=== PATIENT | male | born 1990 | race Caucasian/White ===

== ENCOUNTER 2017-09-17 00:20 | Emergency (ER) | payer OTHER ==
[~2017-09-17] VITALS: Ht 177.8 cm; Wt 64.2 kg
[~2017-09-17 00:20] MED LIST: PHEN-426 PO; SULF-154 PO
[2017-09-17 00:22] VITALS: BP 139/82; PULSE 113; RESP 22; TEMP 102.8; O2SAT 96
[2017-09-17 00:41] VITALS: BP 139/82; PULSE 113; RESP 18; TEMP 102.8; O2SAT 97
--- NOTE | 2017-09-17 00:50 | PD ---
HPI Chief Complaint: Cold / Flu Symptoms Time Seen by Provider: 00:39 Travel History International Travel<30 days: No Contact w/Intl Traveler<30days: No Traveled to known affect area: No History of Present Illness HPI The patient is a 26-year-old male that has been wheezing, shortness of breath for 1 day. He has a low-grade fever around 101 at home. He was seen yesterday at an urgent care center and the flu test was negative. They did not do a strep screen. They put him on a Z-Regino. [facility] / [facility] Past Medical History Medical History: Denies Significant Hx Diminished Hearing: No Immunizations Current: Yes Tetanus Vaccination: > 5 Years Influenza Vaccination: No Past Surgical History Surgical History: No Previous Surgery Oral Surgery: Yes (WISDOM TEETH) Social History Alcohol Use: Yes (BEER OCCASIONALLY) Tobacco Use: Yes (E=CIG) Substance Use: No Allergies-Medications (Allergen,Severity, Reaction): Coded Allergies: penicillin G (Unverified Allergy, Mild, 09/17/17) Reported Meds & Prescriptions Reported Meds & Active Scripts Active Review of Systems Except as stated in HPI: all other systems reviewed are Neg Physical Exam Narrative GENERAL: The patient is alert, oriented 3 in moderate apparent distress with his sore throat. His vital signs show temperature 102.8 with heart rate of 113 but otherwise are normal. SKIN: Focused skin assessment warm/dry. HEAD: Atraumatic. Normocephalic. EYES: Pupils equal and round. No scleral icterus. No injection or drainage. ENT: No nasal bleeding or discharge. Mucous membranes pink and moist. The tympanic membranes are clear and the throat is bright red without exudate or abscess. NECK: Trachea midline. No JVD. CARDIOVASCULAR: Regular rate and rhythm. No murmur appreciated. RESPIRATORY: No accessory muscle use. Bilateral wheezes are heard in all lung morris. Breath sounds equal bilaterally. GASTROINTESTINAL: Abdomen soft, non-tender, nondistended. Hepatic and splenic margins not palpable. No guarding or rebound is present. MUSCULOSKELETAL: No obvious deformities. No clubbing. No cyanosis. No edema. NEUROLOGICAL: Awake and alert. No obvious cranial nerve deficits. Motor grossly within normal limits. Normal speech. PSYCHIATRIC: Appropriate mood and affect; insight and judgment normal. Data Data Last Documented VS Vital Signs Date Time Temp Pulse Resp B/P (MAP) Pulse Ox O2 Delivery O2 Flow Rate FiO2 09/17/17 00:41 102.8 113 18 139/82 (101) 97 Room Air Orders Orders Complete Blood Count With Diff (09/17/17 00:46) Comprehensive Metabolic Panel (09/17/17 00:46) Group A Rapid Strep Screen (09/17/17 00:46) Influenzae A/B Antigen (09/17/17 00:46) Chest, Pa & Lat (09/17/17 00:46) Methylprednisolone So Succ Inj (Solumedr (09/17/17 01:00) Albuterol-Ipratropium Neb (Duoneb Neb) (09/17/17 01:00) Strep Culture (Group A) (09/17/17 01:02) Ed Discharge Order (09/17/17 01:32) Acetaminophen (Tylenol) (09/17/17 01:45) Labs Laboratory Tests Test 09/17/17 01:02 White Blood Count 5.2 TH/MM3 Red Blood Count 4.85 MIL/MM3 Hemoglobin 15.1 GM/DL Hematocrit 46.0 % Mean Corpuscular Volume 94.9 FL Mean Corpuscular Hemoglobin 31.2 PG Mean Corpuscular Hemoglobin Concent 32.8 % Red Cell Distribution Width 12.3 % Platelet Count 127 TH/MM3 Mean Platelet Volume 8.1 FL Neutrophils (%) (Auto) 81.0 % Lymphocytes (%) (Auto) 12.3 % Monocytes (%) (Auto) 6.3 % Eosinophils (%) (Auto) 0.0 % Basophils (%) (Auto) 0.4 % Neutrophils # (Auto) 4.3 TH/MM3 Lymphocytes # (Auto) 0.6 TH/MM3 Monocytes # (Auto) 0.3 TH/MM3 Eosinophils # (Auto) 0.0 TH/MM3 Basophils # (Auto) 0.0 TH/MM3 CBC Comment DIFF FINAL Differential Comment Blood Urea Nitrogen 10 MG/DL Creatinine 1.20 MG/DL Random Glucose 123 MG/DL Total Protein 7.4 GM/DL Albumin 3.8 GM/DL Calcium Level 8.3 MG/DL Alkaline Phosphatase 41 U/L Aspartate Amino Transf (AST/SGOT) 25 U/L Alanine Aminotransferase (ALT/SGPT) 15 U/L Total Bilirubin 0.7 MG/DL Sodium Level 134 MEQ/L Potassium Level 4.6 MEQ/L Chloride Level 101 MEQ/L Carbon Dioxide Level 25.8 MEQ/L Anion Gap 7 MEQ/L Estimat Glomerular Filtration Rate 72 ML/MIN MDM Medical Decision Making Medical Screen Exam Complete: Yes Emergency Medical Condition: Yes Medical Record Reviewed: Yes Interpretation(s) The strep screen is negative for group A strep antigen. The influenza A/B antigen is positive for influenza A. Differential Diagnosis Strep pharyngitis, viral pharyngitis, flu syndrome, nonspecific viral syndrome, pneumonia, bronchitis, bronchospasm Narrative Course The patient has bronchitis with bronchospasm. He also has a flu syndrome. He got minimal relief with the DuoNeb treatments and his heart rate went up very briefly to the 200 range. He is told that he should warn doctors about being sensitive to albuterol that it made his heart speed up. He will be given 7 days of prednisone 50 mg daily. He needs to follow-up with a primary care physician next week. The prednisone will help his throat and hopefully help the wheezing. Diagnosis Primary Impression: Influenza A Additional Impression: Bronchitis with bronchospasm Additional Instructions: The prednisone is one tablet daily for 7 days. Hopefully this will help both the throat and the wheezing. Follow-up next week with your primary care physician. Med/Other Pt SpecificInfo: Prescription(s) given Scripts Prednisone (Prednisone) 50 Mg Tab 50 MG PO DAILY for 7 Days, #7 TAB 0 Refills Prov: Juan Jose Wallis MD 09/17/17 Disposition: 01 DISCHARGE HOME Condition: Stable Juan Jose Wallis MD Sep 17, 2017 00:50
[2017-09-17] MEDS: RESP: ALBUTEROL 2.5 MG/IPRATROPIUM 0.5 MG NEB (SCH) INH ×3 (01:00→01:30)
[2017-09-17] MEDS ORDERED: methylPREDNISolone SOD SUCC 125 MG/2 ML VIAL IV PUSH ONE (01:00)
[2017-09-17 01:06] LABS: AUTOMATED NEUTROPHIL # 4.3 TH/MM3 (1.8-7.7); BASOPHIL % 0.4 % (0.0-2.0); HEMOGLOBIN 15.1 GM/DL (13.0-17.0); LYMPH % 12.3 % (9.0-44.0); LYMPHOCYTE # 0.6 TH/MM3 (1.0-4.8); MEAN CELL VOLUME 94.9 FL (80.0-100.0); MEAN CORPUSCULAR HEMOGLOBIN 31.2 PG (27.0-34.0); MEAN CORPUSCULAR HGB CONC 32.8 % (32.0-36.0); MEAN PLATELET VOLUME 8.1 FL (7.0-11.0); MONO % 6.3 % (0.0-8.0); MONOCYTE # 0.3 TH/MM3 (0-0.9); PLATELET COUNT 127 TH/MM3 (150-450); RED BLOOD COUNT 4.85 MIL/MM3 (4.50-5.90); RED CELL DISTRIBUTION WIDTH 12.3 % (11.6-17.2); WHITE BLOOD COUNT 5.2 TH/MM3 (4.0-11.0)
[2017-09-17 01:13] LABS: CHLORIDE 101 MEQ/L (98-107); SODIUM (NA) 134 MEQ/L (136-145)
[2017-09-17 01:16] LABS: ALBUMIN 3.8 GM/DL (3.4-5.0); BICARBONATE 25.8 MEQ/L (21.0-32.0); CALCIUM 8.3 MG/DL (8.5-10.1); GLUCOSE,RANDOM 123 MG/DL (74-106)
[2017-09-17 01:17] LABS: BLOOD UREA NITROGEN 10 MG/DL (7-18)
[2017-09-17 01:19] LABS: ALT (GPT) 15 U/L (12-78); AST (GOT) 25 U/L (15-37)
[2017-09-17 01:20] LABS: GLOMERULAR FILTRATION RATE 72 ML/MIN (>89)
[2017-09-17 01:21] LABS: TOTAL BILIRUBIN ADULT 0.7 MG/DL (0.2-1.0); TOTAL PROTEIN 7.4 GM/DL (6.4-8.2)
[2017-09-17 01:22] LABS: ALKALINE PHOSPHATASE 41 U/L (45-117)
[2017-09-17] MEDS ORDERED: PRED50 PO (01:38)
[2017-09-17] MEDS ORDERED: ACETAMINOPHEN 325 MG TAB PO ONE (01:45)
--- NOTE | 2017-09-17 01:49 | RADRPT ---
EXAM DATE/TIME: 09/17/2017 01:34 [place] COMPARISON: No previous studies available for comparison. INDICATIONS : Fever, cough, flu-like symptoms for 2 days MEDICAL HISTORY : None. SURGICAL HISTORY : None. ENCOUNTER: Initial ACUITY: 2 days PAIN SCORE: 5/10 LOCATION: Bilateral chest FINDINGS: Pectus deformity with dextroscoliosis of the lower thoracic spine. Airspace disease in the left lower lobe anteriorly. Cardiomediastinal contours are within normal limits. Bony thorax is intact. CONCLUSION: 1. Pectus deformity with dextroscoliosis of the lower thoracic spine. 2. Focal airspace disease in the left lower lobe anteriorly may reflect atelectasis due to above. How ever, pneumonia cannot be excluded in the appropriate clinical setting. Sreekanth Walters MD on September 17, 2017 at 1:46 Board Certified Radiologist. This report was verified electronically.
[2017-09-17 02:12] VITALS: BP 123/74; PULSE 120; RESP 18; TEMP 101.5; O2SAT 97
== END 2017-09-17 02:15 | disposition home or self-care (01) ==
LOC: PHED 00:20
DX: J09.X2 Influenza due to identified novel influenza A virus with other respiratory manifestations (principal); J40 Bronchitis, not specified as acute or chronic; J98.01 Acute bronchospasm; Z72.0 Tobacco use
CPT/HCPCS: 71046; 80053; 85025; 87081; 87804; 87880; 94640; 94664; 96374; 99284; J2930